=== PATIENT | female | born 1970 | race African-American/Black ===

== ENCOUNTER → 2017-02-28 | Outpatient (CLI) | payer OTHER ==
[~2017-02-28] MED LIST: ALPRAZOLAM0.25 M2 PO; BENAZEPRIL HCL40 MG PO; CRANBERRY450 M2 PO; GINKGO BILOBA120 M2 PO; KLOR-CON PO; LASIX PO; MAGNESIUM400 MG PO; METFORMIN HCL1000 M2 PO; MIRALAX119 GM PO; MULTI VITAMIN1 EACH PO; ONGLYZA5 MG PO; SENNA PO; VALERIAN ROOT445 MG PO; VITAMIN E100 UNI2 PO
--- NOTE | ~2017-02-28 | MY11 ---
[facility] A Service of [facility] RADIOLOGY TEXT RESULTS PATIENT: CARRILLO RAMOS LOCATION: [facility] : 72 UNIT #: [id number] AGE: [address]: Ramirez Webster MD SEX: F ORDER DR: [id number] [facility] [address] [place], [place] [address] [id number] O MR#: [id number] Acc #: [id number] NAME: CARRILLO RAMOS : 1970 SEX: F STUDY DATE/TIME: 02/28/2017 14:49 UNIT: [facility] ROOM: STUDY DESCRIPTION: MY Mammogram Screening Dig Molina Attending Physician: Ramirez Webster M.D. Ordering Physician: Ramirez Webster M.D. Primary Care Physician: Ramirez Webster M.D. MEDICAL IMAGING REPORT This report is preliminary unless electronic signature is present EXAM Bilateral digital screening mammogram with CAD device 02/28/2017 HISTORY Routine screening. FINDINGS Digital imaging of each breast was completed utilizing a two-view examination of each breast in craniocaudal and mediolateral-oblique projections. Review and interpretation of digital mammograms include a second review in conjunction with FDA-approved CAD device. There is a normal parenchymal presentation bilaterally consistent with the patient's age. There are no breast masses imaged and no parenchymal asymmetry is visualized. There are no suspicious microcalcifications and I see no focal architectural disturbance. IMPRESSION Negative screening digital mammogram. One-year followup recommended. Patients over the age of 40 are entered into a reminder system with target due date for the next mammogram. A result letter will also be sent to the patient. BIRADS: 1 Negative Dictated by... Abdirahman Liriano M.D. THIS IS AN ELECTRONICALLY VERIFIED REPORT Abdirahman Liriano M.D. at 03/01/2017 7:46 AM ELVIN/toya TD: 02/28/2017 16:46 [facility] A Service of [facility] RADIOLOGY TEXT RESULTS PATIENT: CAR[facility]LL[facility] RAM[id number] 72 UNIT #: [id number] AGE: [address]: Ramirez Webster MD SEX: F ORDER DR: JOB #: [id number] MEDICAL IMAGING REPORT Page 1 of 1 COPY
== END | disposition home or self-care (01) ==
LOC: CWCC 14:28
DX: Z12.31 Encounter for screening mammogram for malignant neoplasm of breast (principal)
CPT/HCPCS: G0202

== ENCOUNTER → 2017-06-01 | Day surgery (SDC) | payer MEDICARE, OTHER ==
--- NOTE | ~2017-06-01 | OR ---
Unit #: [id number] #: [id number] Patient: CARRILLO GOODRICH [id number] [address] [place], [place] [address] [id number] O MR#: [id number] NAME: CARRILLO GOODRICH ROOM: Date of Procedure: 06/01/2017 Admission Date: 06/01/2017 Surgeon: Lorenzo Patel M.D. : 1970 Attending Physician: Lorenzo Patel M.D. Primary Care Physician: Ramirez Webster M.D. OPERATIVE REPORT PREOPERATIVE DIAGNOSES Iron-deficiency anemia, anemia of possible chronic gastrointestinal blood loss. The patient also mentions history of menorrhagia. PROCEDURES PERFORMED Upper gastrointestinal endoscopy and biopsy as well as colonoscopy up to cecum with excellent preparation and good visualization. POSTOPERATIVE DIAGNOSES For upper endoscopy: Mild prepyloric antral gastritis. Otherwise, normal examination up to third part of duodenum. Biopsies were obtained from the antrum for CLOtest. For colonoscopy: Completely normal examination up to cecum. The quality of the prep was excellent. No polyps, diverticula, or hemorrhoids were seen and no angiodysplasias were present. RECOMMENDATIONS The patient is being started on ferrous sulfate 325 mg p.o. b.i.d. She will be followed up in the office in 3 months' time. She was also advised to seek a [employer] consultation that she might need hormone manipulation to reduce the degree of blood loss due to menorrhagia. SEDATION USED MAC. DESCRIPTION OF PROCEDURE Following detailed explanation of potential risks and complications of an upper endoscopy and a colonoscopy, namely perforation, bleeding, and complication related to sedation, the patient was brought to GI lab and laid in the left lateral decubitus position. Lubricated tip of the Olympus video upper endoscope was passed through the bite block into the proximal esophagus under direct vision. The entire esophageal mucosa was examined and appeared normal. Z-line was nicely demarcated, there being no esophagitis or hiatus hernia. The scope was then advanced into the gastric cavity and the latter was insufflated. Mucosa of the fundus, body, and antrum was examined and the patient was noted to have mild prepyloric antral erythema indicating antral gastritis. Pylorus was intubated with of visualization of the normal duodenal bulb and second and third part of the duodenum. Upon withdrawal and retroflexion; incisura, cardia, and greater curve was examined and no additional findings were noted. The scope was then withdrawn in the distal esophagus. Biopsies Unit #: [id number] #: [id number] Patient: CARRILLO GOODRICH were obtained from the antrum for CLOtest. The scope was then withdrawn in the distal esophagus. The entire esophageal mucosa was examined all the way up to pharynx. No additional findings were noted. The examination table was then turned by 180 degrees and the patient positioned for a colonoscopy. A digital rectal examination was performed, which was normal. Lubricated tip of the Olympus video colonoscope was inserted through the anus and advanced under direct vision. The scope was advanced past rectosigmoid into descending colon. No diverticula were noted in this area. The scope tip was then navigated all the way up to cecum with visualization of the ileocecal valve and the appendiceal orifice. Preparation was excellent with good visualization and photodocumentation was obtained. Successive segments of the colonic mucosa were examined upon withdrawal and appeared unremarkable. There being no polyps, mass lesions, AVMs, or diverticula. The patient did not have any hemorrhoids at anal verge. The scope was then withdrawn and the patient returned to the recovery area. She tolerated the procedure without any postprocedure complications. Dictated by... Jenn Stark/evelyn TD: 06/01/2017 16:48 JOB #: [id number] CC: Ramirez Webster M.D. OPERATIVE REPORT Page 1 of 1 X Lorenzo Patel MD X PROCEDURE OPERATIVE NOTE
== END | disposition home or self-care (01) ==
LOC: COPS 11:32
DX: K29.70 Gastritis, unspecified, without bleeding (principal); D50.9 Iron deficiency anemia, unspecified; H54.8 Legal blindness, as defined in USA; I10 Essential (primary) hypertension; E11.9 Type 2 diabetes mellitus without complications; Z88.8 Allergy status to other drugs, medicaments and biological substances; Z79.84 Long term (current) use of oral hypoglycemic drugs; Z79.899 Other long term (current) drug therapy; Z98.51 Tubal ligation status; Z98.890 Other specified postprocedural states
CPT/HCPCS: 82947; 87077; J2250